=== PATIENT | female | born 1995 | race Caucasian/White ===

== ENCOUNTER 2024-02-24 21:46 | Emergency (ER) | payer OTHER ==
[2024-02-24 21:51] VITALS: BP 118/70; PULSE 95; RESP 18; TEMP 98.1; BMI 22.1
[2024-02-24] MEDS ORDERED: ACETAMINOPHEN INJECTION 100 ML IVPB ONE (23:04)
[2024-02-24 23:20] LABS: BASO % 0.5 % (0-2.0); HEMATOCRIT 42.7 % (32.4-45.2); HEMOGLOBIN 14.5 GM/dL (10.7-15.3); LYMPH % 22.8 % (8-40); MCH 31.7 pg (25.7-33.7); MEAN CELL VOLUME 93.3 fl (80-96); MEAN PLT VOLUME 7.9 fl (7.5-11.1); MONO % 7.1 % (3.8-10.2); NEUT % 65.6 % (42.8-82.8); PLATELET COUNT 273 10^3/uL (134-434); RBC 4.58 M/mm3 (3.60-5.2); WHITE BLOOD COUNT 11.1 K/mm3 (4.0-10.0)
[2024-02-24] MEDS: ACETAMINOPHEN 1000 MG/100 ML BAG IVPB ONE (23:24)
[2024-02-24 23:27] LABS: INR 1.16 (0.83-1.09); PROTHROMBIN TIME (PATIENT) 13.1 SEC (9.7-13.0)
[2024-02-24 23:43] LABS: POTASSIUM 3.5 mmol/L (3.5-5.1)
[2024-02-24 23:45] LABS: CALCIUM 9.2 mg/dL (8.5-10.1)
[2024-02-24 23:46] LABS: ALBUMIN 4.4 g/dl (3.4-5.0); BLOOD UREA NITROGEN 11.9 mg/dL (7-18)
[2024-02-24 23:49] LABS: CREATININE 0.8 mg/dL (0.55-1.3)
[2024-02-24 23:50] LABS: BILIRUBIN,TOTAL 0.9 mg/dL (0.2-1); TOT PROT 7.5 g/dl (6.4-8.2)
== END 2024-02-25 00:36 | disposition home or self-care (01) ==
LOC: JER 21:46
PROC: 3E033NZ Introduction of Analgesics, Hypnotics, Sedatives into Peripheral Vein, Percutaneous Approach (ICD-10-PCS; principal; 2024-02-24)
DX: O20.9 Hemorrhage in early pregnancy, unspecified (principal); Z3A.01 Less than 8 weeks gestation of pregnancy
CPT/HCPCS: 36415; 76817-TC; 80053; 84702; 85025; 85610; 86850; 86900; 86901; 99284-25; J0131

== ENCOUNTER 2024-09-07 10:15 | Emergency (ER) | payer OTHER ==
[2024-09-07 10:29] VITALS: BP 122/75; PULSE 90; RESP 18; TEMP 99.1; BMI 22.6
[2024-09-07] MEDS ORDERED: ONDANSETRON 4 MG/2 ML VIAL ONE (11:04)
[2024-09-07] MEDS: ONDANSETRON 4 MG/2 ML VIAL IVPUSH ONE (11:18)
[2024-09-07 11:19] LABS: BASO % 0.1 % (0-2.0); EOS % 0.8 % (0-4.5); HEMATOCRIT 39.8 % (32.4-45.2); HEMOGLOBIN 13.6 GM/dL (10.7-15.3); LYMPH % 16.1 % (8-40); MCH 31.3 pg (25.7-33.7); MCHC 34.1 g/dl (32.0-36.0); MEAN CELL VOLUME 91.6 fl (80-96); MONO % 6.3 % (3.8-10.2); NEUT % 76.7 % (42.8-82.8); PLATELET COUNT 251 10^3/uL (134-434); RBC 4.34 M/mm3 (3.60-5.2); WHITE BLOOD COUNT 8.6 K/mm3 (4.0-10.0)
[2024-09-07 11:21] LABS: POTASSIUM 3.6 mmol/L (3.5-5.1)
[2024-09-07 11:23] LABS: HCG,QUALITATIVE URINE Positive
[2024-09-07 11:24] LABS: ALBUMIN 3.9 g/dl (3.4-5.0); BLOOD UREA NITROGEN 11.9 mg/dL (7-18); CALCIUM 9.3 mg/dL (8.5-10.1); MAGNESIUM 2.2 mg/dL (1.8-2.4)
[2024-09-07 11:27] LABS: CREATININE 0.7 mg/dL (0.55-1.3); EPI CELLS >36 /uL (0-25.1); HYALINE CASTS 3 /uL (0-3.1); PH,URINE 6.5 (5.0-8.0); URINE APPEARANCE CLEAR; URINE BACTERIA 208 /uL (0-1359); URINE BILIRUBIN NEGATIVE (NEGATIVE); URINE COLOR DK YELLOW; URINE GLUCOSE (UA) NEGATIVE (NEGATIVE); URINE KETONE TRACE (NEGATIVE); URINE LEUK ESTERASE TRACE (NEGATIVE); URINE NITRITE NEGATIVE (NEGATIVE); URINE PROTEIN 1+ (NEGATIVE); URINE RBC 12 /uL (0-23.9); URINE WBC 17 /uL (0-25.8)
[2024-09-07 11:28] LABS: BILIRUBIN,TOTAL 1.1 mg/dL (0.2-1)
[2024-09-07 11:29] LABS: TOT PROT 6.8 g/dl (6.4-8.2)
[2024-09-07] MEDS: DEXTROSE 5%-NORMAL SALINE 1,000 ML IV ONE (11:30)
[2024-09-07] MEDS ORDERED: FAMOTIDINE 20 MG/50 ML IVPB 20 MG/50 ML MG IVPB ONE (12:08)
[2024-09-07] MEDS: FAMOTIDINE 20 MG/50 ML IVPB 20 MG/50 ML MG IVPB ONE (12:24)
== END 2024-09-07 14:53 | disposition home or self-care (01) ==
LOC: JER 10:15
PROC: 3E033GC Introduction of Other Therapeutic Substance into Peripheral Vein, Percutaneous Approach (ICD-10-PCS; principal; 2024-09-07)
PROC: 3E033GC Introduction of Other Therapeutic Substance into Peripheral Vein, Percutaneous Approach (ICD-10-PCS; 2024-09-07)
DX: O21.9 Vomiting of pregnancy, unspecified (principal); O26.891 Other specified pregnancy related conditions, first trimester; R10.30 Lower abdominal pain, unspecified; Z3A.10 10 weeks gestation of pregnancy
CPT/HCPCS: 36415; 76801-TC; 80053; 81003; 83690; 83735; 84703; 85025; 87086; 99285-25

== ENCOUNTER 2024-10-08 10:34 | Emergency (ER) | payer OTHER ==
[2024-10-08 11:09] VITALS: BP 98/63; PULSE 96; RESP 18; TEMP 97.4; BMI 21.6
[2024-10-08 11:32] LABS: URINE APPEARANCE CLEAR; URINE BILIRUBIN NEGATIVE (NEGATIVE); URINE COLOR YELLOW; URINE GLUCOSE (UA) NEGATIVE (NEGATIVE); URINE KETONE TRACE (NEGATIVE); URINE LEUK ESTERASE NEGATIVE (NEGATIVE); URINE NITRITE NEGATIVE (NEGATIVE); URINE PROTEIN TRACE (NEGATIVE)
[2024-10-08] MEDS ORDERED: ONDANSETRON 4 MG/2 ML VIAL ONE (11:35)
[2024-10-08 11:38] LABS: ABSOLUTE IMMATURE GRANULOCYTES 0.04 x10^3/uL (0.0-0.031); BASOPHILS # 0.02 x10^3/uL (0.01-0.08); EOSINOPHIL % 0.9 % (0.7-5.8); EOSINOPHILS # 0.08 x10^3/uL (0.04-0.36); HEMATOCRIT 37.6 % (34.1-44.9); MCHC 34.6 g/dl (32.2-35.5); MEAN PLT VOLUME 9.7 fl (9.4-12.3); MONOCYTE # 0.56 x10^3/uL (0.24-0.86); MONOCYTE % 6.2 % (4.7-12.5); PLATELET COUNT # 230 x10^3/uL (182-369); RDW 12.4 % (12.1-16.5)
[2024-10-08] MEDS: SODIUM CHLORIDE 1,000 ML IV STA (11:45)
[2024-10-08] MEDS: ONDANSETRON 4 MG/2 ML VIAL IVPUSH ONE (11:45)
[2024-10-08 12:29] LABS: POTASSIUM 3.9 mmol/L (3.5-5.1)
[2024-10-08 12:32] LABS: ALBUMIN 3.6 g/dl (3.4-5.0); BLOOD UREA NITROGEN 8.8 mg/dL (7-18)
[2024-10-08 12:36] LABS: CREATININE 0.6 mg/dL (0.55-1.3)
[2024-10-08 12:37] LABS: BILIRUBIN,TOTAL 0.7 mg/dL (0.2-1); TOT PROT 6.6 g/dl (6.4-8.2)
== END 2024-10-08 14:46 | disposition home or self-care (01) ==
LOC: JER 10:34
PROC: 3E033GC Introduction of Other Therapeutic Substance into Peripheral Vein, Percutaneous Approach (ICD-10-PCS; principal; 2024-10-08)
PROC: 3E0337Z Introduction of Electrolytic and Water Balance Substance into Peripheral Vein, Percutaneous Approach (ICD-10-PCS; 2024-10-08)
DX: O20.9 Hemorrhage in early pregnancy, unspecified (principal); O21.9 Vomiting of pregnancy, unspecified; Z3A.12 12 weeks gestation of pregnancy
CPT/HCPCS: 36415; 76801-TC; 80053; 81003; 85025; 86850; 86900; 86901; 87086; 99284-25

== ENCOUNTER 2024-11-04 15:18 | Emergency (ER) | payer OTHER ==
[2024-11-04 15:30] VITALS: BP 108/65; PULSE 91; RESP 18; TEMP 97.9; BMI 22.3
[2024-11-04] MEDS ORDERED: METOCLOPRAMIDE HCL INJECTION 10 MG/2 ML VIAL ONE (16:14)
[2024-11-04] MEDS: METOCLOPRAMIDE HCL INJECTION 10 MG/2 ML VIAL IVPB ONE (16:32)
[2024-11-04] MEDS ORDERED: ACETAMINOPHEN 500 MG TABLET (FP) ONE (16:34)
[2024-11-04 16:38] LABS: ABSOLUTE IMMATURE GRANULOCYTES 0.06 x10^3/uL (0.0-0.031); BASOPHILS # 0.02 x10^3/uL (0.01-0.08); EOSINOPHILS # 0.23 x10^3/uL (0.04-0.36); HEMATOCRIT 39.1 % (34.1-44.9); HEMOGLOBIN 13.3 g/dL (11.2-15.7); MEAN CELL VOLUME 91.4 fl (79.4-94.8); MEAN PLT VOLUME 9.5 fl (9.4-12.3); MONOCYTE # 0.65 x10^3/uL (0.24-0.86); MONOCYTE % 5.8 % (4.7-12.5); PLATELET COUNT 273 x10^3/uL (182-369); RDW 12.8 % (12.1-16.5)
[2024-11-04] MEDS: ACETAMINOPHEN 500 MG TABLET (FP) PO ONE (16:38)
[2024-11-04 16:39] LABS: PH,URINE 6.5 (5.0-8.0); URINE APPEARANCE CLEAR; URINE BILIRUBIN NEGATIVE (NEGATIVE); URINE COLOR YELLOW; URINE GLUCOSE (UA) NEGATIVE (NEGATIVE); URINE KETONE NEGATIVE (NEGATIVE); URINE LEUK ESTERASE NEGATIVE (NEGATIVE); URINE NITRITE NEGATIVE (NEGATIVE); URINE PROTEIN NEGATIVE (NEGATIVE); URINE UROBILINOGEN 0.2 mg/dL (0.2-1.0)
[2024-11-04 17:06] LABS: POTASSIUM 3.9 mmol/L (3.5-5.1)
[2024-11-04 17:08] LABS: CALCIUM 9.5 mg/dL (8.5-10.1)
[2024-11-04 17:09] LABS: ALBUMIN 3.5 g/dl (3.4-5.0); BLOOD UREA NITROGEN 9.6 mg/dL (7-18)
[2024-11-04 17:12] LABS: CREATININE 0.5 mg/dL (0.55-1.3)
[2024-11-04 17:14] LABS: BILIRUBIN,TOTAL 0.4 mg/dL (0.2-1); TOT PROT 6.9 g/dl (6.4-8.2)
[2024-11-04 18:09] LABS: HCV DIAGNOSTIC IN-HOUSE W/RFLX NON-REACTIVE (NONREACTIVE); HIV INTERPRETATION NEGATIVE (NEGATIVE)
== END 2024-11-04 18:58 | disposition home or self-care (01) ==
LOC: JER 15:18
PROC: 3E033GC Introduction of Other Therapeutic Substance into Peripheral Vein, Percutaneous Approach (ICD-10-PCS; principal; 2024-11-04)
DX: O26.892 Other specified pregnancy related conditions, second trimester (principal); R10.30 Lower abdominal pain, unspecified; R51.9 Headache, unspecified; Z3A.18 18 weeks gestation of pregnancy
CPT/HCPCS: 36415; 76815; 76817-TC; 80053; 81003; 84702; 85025; 86803; 86850; 86900; 86901; 87086; 87389; 93005; 93010; 99285-25